=== PATIENT | male | born 1990 | race Caucasian/White ===

== ENCOUNTER 2018-09-06 16:01 | Emergency (ER) | payer OTHER ==
--- OUTSIDE RECORDS SUMMARY | 2018-09-06 16:03 | XMS REPORT | Clinical Summary ---
:1990 Author Organization [employer] [facility] Address [address] [place] [address] Care Team Providers Name Role Phone Malena Stein DO Primary Care Provider Allergies No Known Allergies Current Medications Prescription Sig. Disp. Refills Start Date End Date Status budesonide (RINOCORT 1 spray into each 3 Bottle 3 03/05/2016 Active AQUA) 32 mcg/actuation nostril daily. nasal spray jzdarxu-tsgboewikdzjg-f Take 1 tablet by Active affeine (EXCEDRIN mouth every 6 MIGRAINE) 250-250-65 mg (six) hours as per tablet needed for headaches. topiramate (TOPAMAX) 50 Take 1 tablet (50 90 tablet 1 09/27/2016 Active MG tablet mg total) by mouth daily. Active Problems Problem Noted Date Allergic rhinitis due to pollen 02/24/2016 Family History Medical History Relation Name Comments No Known Problems Brother No Known Problems Brother No Known Problems Father Cancer Maternal Grandfather unknown type Diabetes Maternal Grandmother No Known Problems Mother No Known Problems Paternal Grandfather No Known Problems Paternal Grandmother Relation Name Status Comments Brother Alive Brother Alive Father Alive Maternal Grandfather Alive Maternal Grandmother Alive Mother Alive Paternal Grandfather Alive Paternal Grandmother Alive Social History Tobacco Use Types Packs/Day Years Used Date Never Smoker Smokeless Tobacco: Current User Chew Tobacco Cessation: Ready to Quit: No Comments: chewing tobacco since [age] yoa Alcohol Use Drinks/Week oz/Week Comments Yes moderate - 1x/day (crown/sprite) Sex Assigned at Date Recorded Not on file Last Filed Vital Signs Not on file Plan of Treatment Health Maintenance Due Date Last Done Comments INFLUENZA VACCINE 06/19/2018 Results Not on fileafter 09/05/2017 Insurance Payer Benefit Plan / Group Subscriber ID Type Phone [facility]
[2018-09-06] MEDS ORDERED: KETOROLAC 30 MG/ML INJ ONE (16:45)
[2018-09-06 17:11] LABS: Urine Blood 1+ (NEG); Urine Glucose NEGATIVE (NEG); Urine Protein NEGATIVE (NEG); Urine Specific Gravity 1.005 (1.005-1.030)
[2018-09-06 17:22] LABS: Urine Bacteria NONE SEEN /HPF (NONE SEEN); Urine Culture Reflex Order NOT NEEDED; Urine RBC <5 /HPF (NONE SEEN)
--- NOTE | 2018-09-06 17:25 | RAD REPORT ---
EXAM DESCRIPTION: CT - Stone Protocol - 09/06/2018 4:51 pm CLINICAL HISTORY: Back pain, flank pain COMPARISON: CT imaging July 2017 TECHNIQUE: Axial 5 mm thick images were obtained without oral or IV contrast. The [id number] span s the entirety of the system including uppermost abdomen and lung bases. All CT scans are performed using dose optimization technique as appropriate and may include automated exposure control or mA/KV adjustment according to patient size. FINDINGS: No hydronephrosis is present and no obstructing ureteral calculi. No suspicious renal mass es. Isodense masses and pyelonephritis are not excluded on a stone protocol CT scan. A 2 millimeter c alcification is present lower pole left kidney No urinary bladder calculus. No thickening or mass. Prostate gland and seminal vesicles within normal limits. Imaged portions of the liver, spleen and pancreas show no suspicious findings on non-contrast imaging . No gallbladder or biliary tree abnormality identified. No significant adrenal finding. No suspicious bowel findings. Appendectomy clips are present. No acute GI process seen. Small fat only umbilical hernia is present similar to comparison. No inguinal hernia is seen. No free air, free fluid or inflammatory stranding. No significant bony abnormality. IMPRESSION: No hydronephrosis, obstructing calculus or acute finding. A small lower pole left geronimo al calculus noted on the left. Isodense masses and pyelonephritis are not excluded on stone protocol technique. Elsewhere abdomen and pelvis shows no acute or significant finding.
--- NOTE | 2018-09-06 17:33 | EDPHYS ---
Physician Documentation [facility] Name: Pradip Porter Age: 28 yrs Sex: Male : 1990 Arrival Date: 09/06/2018 Time: 16:02 Bed 26 Private MD: ED Physician Suhas Faria HPI: 09/06 17:06 This 28 yrs old Male presents to ER via Wheelchair with complaints of Back snw Pain. 17:06 The patient presents with pain that is acute, with no known mechanism of injury. The snw symptoms are located in the low back. Onset: The symptoms/episode began/occurred suddenly. Location: groin. Associated signs and symptoms: Pertinent positives: none. The problem was sustained from unknown cause. Modifying factors: The patient symptoms are alleviated by nothing, the patient symptoms are aggravated by nothing. Severity of symptoms: At their worst the symptoms were moderate. The patient has not experienced similar symptoms in the past. The patient has not recently seen a physician. + family hx of renal calculi. Historical: - Allergies: 16:10 No Known Allergies; aa5 - Home Meds: 16:10 Omeprazole Oral [Active]; aa5 16:46 Propranolol Oral [Active]; Rhinocort Aqua 32 mcg/actuation Nasal spry [Active]; mg2 - PMHx: 16:10 GERD; Hypertension; aa5 - PSHx: 16:10 Appendectomy; nose; aa5 - Immunization history:: Adult Immunizations up to date. - Social history:: Smoking status: Patient/guardian denies using tobacco. - Ebola Screening: : No symptoms or risks identified at this time. ROS: 17:00 Constitutional: Negative for fever, chills, and weight loss, Eyes: Negative for injury, snw pain, redness, and discharge, ENT: Negative for injury, pain, and discharge, Neck: Negative for injury, pain, and swelling, Cardiovascular: Negative for chest pain, palpitations, and edema, Respiratory: Negative for shortness of breath, cough, wheezing, and pleuritic chest pain, Abdomen/GI: Negative for abdominal pain, nausea, vomiting, diarrhea, and constipation, MS/Extremity: Negative for injury and deformity, Skin: Negative for injury, rash, and discoloration, Neuro: Negative for headache, weakness, numbness, tingling, and seizure. 17:00 Back: Positive for pain at rest, pain with movement, radiated pain, of the low back area with radiation to the groin, legs feel heavy. Exam: 16:53 Constitutional: This is a well developed, well nourished patient who is awake, alert, snw and in no acute distress. Head/Face: Normocephalic, atraumatic. Eyes: Pupils equal round and reactive to light, extra-ocular motions intact. Lids and lashes normal. Conjunctiva and sclera are non-icteric and not injected. Cornea within normal limits. Periorbital areas with no swelling, redness, or edema. ENT: Nares patent. No nasal discharge, no septal abnormalities noted. Tympanic membranes are normal and external auditory canals are clear. Oropharynx with no redness, swelling, or masses, exudates, or evidence of obstruction, uvula midline. Mucous membranes moist. Neck: Trachea midline, no thyromegaly or masses palpated, and no cervical lymphadenopathy. Supple, full range of motion without nuchal rigidity, or vertebral point tenderness. No Meningismus. Chest/axilla: Normal chest wall appearance and motion. Nontender with no deformity. No lesions are appreciated. Cardiovascular: Regular rate and rhythm with a normal S1 and S2. No gallops, murmurs, or rubs. Normal PMI, no JVD. No pulse deficits. Respiratory: Lungs have equal breath sounds bilaterally, clear to auscultation and percussion. No rales, rhonchi or wheezes noted. No increased work of breathing, no retractions or nasal flaring. Abdomen/GI: Soft, non-tender, with normal bowel sounds. No distension or tympany. No guarding or rebound. No evidence of tenderness throughout. Skin: Warm, dry with normal turgor. Normal color with no rashes, no lesions, and no evidence of cellulitis. MS/ Extremity: Pulses equal, no cyanosis. Neurovascular intact. Full, normal range of motion. Neuro: Awake and alert, GCS 15, oriented to person, place, time, and situation. Cranial nerves II-XII grossly intact. Motor strength 5/5 in all extremities. Sensory grossly intact. Cerebellar exam normal. Normal gait. Psych: Awake, alert, with orientation to person, place and time. Behavior, mood, and affect are within normal limits. 16:53 Back: pain, that is mild, that is moderate, ROM is painful. Vital Signs: 16:10 BP 112 / 68; Pulse 63; Resp 16 S; Temp 98.1(TE); Pulse Ox 97% on R/A; Weight 84.37 kg aa5 (R); Height 5 ft. 9 in. (175.26 cm) (R); Pain 8/10; 16:10 Body Mass Index 27.47 (84.37 kg, 175.26 cm) aa5 MDM: 16:38 Patient medically screened. snw 17:32 Data reviewed: vital signs, nurses notes. Data interpreted: Pulse oximetry: on room air snw is 97 %. Interpretation: normal. Counseling: I had a detailed discussion with the patient and/or guardian regarding: the historical points, exam findings, and any diagnostic results supporting the discharge/admit diagnosis, the need for outpatient follow up, for definitive care, to return to the emergency department if symptoms worsen or persist or if there are any questions or concerns that arise at home. Special discussion: Based on the history and exam findings, there is no indication for further emergent testing or inpatient evaluation. I discussed with the patient/guardian the need to see the primary care provider for further evaluation of the symptoms. 09/06 16:12 Order name: Urine Microscopic Only; Complete Time: 17:25 snw 09/06 17:04 Order name: Urine Dipstick--Ancillary (enter results); Complete Time: 17:22 eb 09/06 16:12 Order name: Urine Dipstick-Ancillary (obtain specimen); Complete Time: 17:13 snw 09/06 16:30 Order name: CT Stone Protocol; Complete Time: 17:30 snw Administered Medications: 16:47 Drug: TORadol 60 mg Route: IM; Site: right gluteus; mg2 17:41 Follow up: Response: No adverse reaction; Marked relief of symptoms mg2 18:23 Drug: Valium 2 mg Route: PO; mg2 18:23 Follow up: Response: No adverse reaction; Medication administered at discharge. mg2 Disposition: 09/07 06:23 Co-signature as Attending Physician, Suhas Faria MD I agree with the assessment and kdr plan of care. Disposition: 09/06/18 17:32 Discharged to Home. Impression: Low back pain. - Condition is Stable. - Discharge Instructions: Back Pain, Adult, Musculoskeletal Pain, Back Exercises, [id number], Cryotherapy, Heat Therapy. - Prescriptions for Diclofenac Sodium 75 mg Oral Tablet Sustained Release - take 1 tablet by ORAL route 2 times per day; 30 tablet. orphenadrine citrate 100 mg Oral Tablet Sustained Release - take 1 tablet by ORAL route 2 times per day As needed; 20 tablet. - Work release form, Medication Reconciliation Form, Thank You Letter, Antibiotic Education, Prescription Opioid Use form. - Follow up: Private Physician; When: 2 - 3 days; Reason: Recheck today's complaints, Continuance of care, Re-evaluation by your physician. Follow up: Emergency Department; When: As needed; Reason: Worsening of condition. Signatures: Dispatcher [employer] EDMS Suhas Faria MD MD [facility] Jelena Ly, LOTUS NOTES ADMINISTRATOR-C LOTUS NOTES ADMINISTRATOR-Csnw Kayla Massey, RN RN aa5 Miguelangel Baumann RN RN mg2 Corrections: (The following items were deleted from the chart) 09/06 18:23 17:32 09/06/2018 17:32 Discharged to Home. Impression: Low back pain. Condition is mg2 Stable. Forms are Medication Reconciliation Form, Thank You Letter, Antibiotic Education, Prescription Opioid Use. Follow up: Private Physician; When: 2 - 3 days; Reason: Recheck today's complaints, Continuance of care, Re-evaluation by your physician. Follow up: Emergency Department; When: As needed; Reason: Worsening of condition. snw
--- NOTE | 2018-09-06 17:33 | ER ---
Nurse's Notes [facility] Name: Pradip Porter Age: 28 yrs Sex: Male : 1990 Arrival Date: 09/06/2018 Time: 16:02 Bed 26 Private MD: Diagnosis: Low back pain Presentation: 09/06 16:08 Presenting complaint: Patient states: low back pain radiating to groin area since aa5 yesterday. Pt denies known injury, denies urinary symptoms. Transition of care: patient was not received from another setting of care. Onset of symptoms was August 2018. Risk Assessment: Do you want to hurt yourself or someone else? Patient reports no desire to harm self or others. Initial Sepsis Screen: Does the patient meet any 2 criteria? No. Patient's initial sepsis screen is negative. Does the patient have a suspected source of infection? No. Patient's initial sepsis screen is negative. Care prior to arrival: None. 16:08 Method Of Arrival: Wheelchair aa5 16:08 Acuity: JENN 3 aa5 Historical: - Allergies: 16:10 No Known Allergies; aa5 - Home Meds: 16:10 Omeprazole Oral [Active]; aa5 16:46 Propranolol Oral [Active]; Rhinocort Aqua 32 mcg/actuation Nasal spry [Active]; mg2 - PMHx: 16:10 GERD; Hypertension; aa5 - PSHx: 16:10 Appendectomy; nose; aa5 - Immunization history:: Adult Immunizations up to date. - Social history:: Smoking status: Patient/guardian denies using tobacco. - Ebola Screening: : No symptoms or risks identified at this time. Screenin:36 Abuse screen: Denies threats or abuse. Denies injuries from another. Nutritional mg2 screening: No deficits noted. Tuberculosis screening: No symptoms or risk factors identified. Fall Risk Gait- Weak (10 pts.). Assessment: 16:37 General: Appears uncomfortable, Behavior is calm, cooperative. Pain: Complains of pain mg2 in back Pain does not radiate. Pain currently is 6 out of 10 on a pain scale. Aggravated by increased activity, repositioning, weight bearing. Neuro: Level of Consciousness is awake, alert, obeys commands, Oriented to person, place, time, situation. Cardiovascular: Capillary refill < 3 seconds Patient's skin is warm and dry. Respiratory: Airway is patent Respiratory effort is even, unlabored, Respiratory pattern is regular, symmetrical. GI: No signs and/or symptoms were reported involving the gastrointestinal system. : No signs and/or symptoms were reported regarding the genitourinary system. EENT: No signs and/or symptoms were reported regarding the EENT system. Derm: Skin is intact, is healthy with good turgor, Skin is pink, warm \T\ dry. normal. Musculoskeletal: Circulation, motion, and sensation intact. Capillary refill < 3 seconds, Reports pain in back since 2 days. 16:52 Reassessment: patient in ct scan now. mg2 17:49 Reassessment: Patient appears in no apparent distress at this time. Patient and/or mg2 family updated on plan of care and expected duration. Pain level reassessed. Patient is alert, oriented x 3, equal unlabored respirations, skin warm/dry/pink. patient is for discharge. Just waiting for the to come and pick him up and give him valium before discharge,. Vital Signs: 16:10 BP 112 / 68; Pulse 63; Resp 16 S; Temp 98.1(TE); Pulse Ox 97% on R/A; Weight 84.37 kg aa5 (R); Height 5 ft. 9 in. (175.26 cm) (R); Pain 8/10; 16:10 Body Mass Index 27.47 (84.37 kg, 175.26 cm) aa5 ED Course: 16:02 Patient arrived in ED. tw3 16:09 Triage completed. aa5 16:09 Arm band placed on. aa5 16:12 Jelena Ly [facility]-C [facility]. snw 16:12 Suhas Faria MD is Attending Physician. snw 16:16 Miguelangel Baumann, NATALEE is Primary Nurse. mg2 16:[address] nj 16:36 No provider procedures requiring assistance completed. Patient did not have IV access mg2 during this emergency room visit. 16:45 Patient has correct armband on for positive identification. Call light in reach. Pulse mg2 ox on. NIBP on. 16:52 CT Stone Protocol In Process Unspecified. EDMS Administered Medications: 16:47 Drug: TORadol 60 mg Route: IM; Site: right gluteus; mg2 17:41 Follow up: Response: No adverse reaction; Marked relief of symptoms mg2 18:23 Drug: Valium 2 mg Route: PO; mg2 18:23 Follow up: Response: No adverse reaction; Medication administered at discharge. mg2 Outcome: 17:32 Discharge ordered by . steffanie 18:23 Discharged to home via wheelchair, with family. mg2 18:23 Condition: good 18:23 Discharge instructions given to patient, family, Instructed on discharge instructions, follow up and referral plans. medication usage, Demonstrated understanding of instructions, follow-up care, medications, Prescriptions given X 2. 18:23 Patient left the ED. mg2 Signatures: Dispatcher [employer] EDMS Jelena Ly, COMPOSITION INSTRUCTOR-C COMPOSITION INSTRUCTOR-Csnw Kayla Massey, RN RN aa5 Ranjith Garrido Tia tw3 Miguelangel Baumann RN RN mg2
[2018-09-06] MEDS ORDERED: DIAZEPAM 2 MG TABLET ONE (18:27)
== END 2018-09-06 18:23 | disposition home or self-care (01) ==
LOC: ER 16:01
DX: M54.5 Low back pain (principal); I10 Essential (primary) hypertension; K21.9 Gastro-esophageal reflux disease without esophagitis
CPT/HCPCS: 74176; 76377; 81003; 81015; 96372; 99284

== ENCOUNTER 2021-03-29 08:30 | Emergency (ER) | payer OTHER ==
--- OUTSIDE RECORDS SUMMARY | 2021-03-29 08:33 | XMS REPORT | Continuity of Care Document ---
:1990 Author Organization [facility] t Address [address] [place] [address] Care Team Providers Name Role Phone Sarita GAYLE Primary Care Physician Doctor Unassigned, Name Attending Clinician Unavailable Kiana SPENCER, Gene Attending Clinician Problems Condition Condition Condition Status Onset Resolution Last Treating Co mments Source Name Details Category Date Date Treatment Clinician Date Allergic Allergic Disease Active Hous[place] on rhinitis rhinitis 02-23 Method i due to due to 00:00: st pollen pollen 00 Allergies, Adverse Reactions, Alerts This patient has no known allergies or adverse reactions. Family History Family Member Diagnosis Comments Start Date Stop Date Source Paternal grandmother No Known Problems Rahman [facility] Natural brother No Known Problems Eldon trinh [facility] Natural father No Known Problems Marielle castañeda [facility] Maternal grandfather Cancer [place] [facility] Maternal grandmother Diabetes [place] [facility] Natural mother No Known Problems Marielle garry [facility] Paternal grandfather No Known Problems [place] [facility] Social History Social Habit Start Date Stop Date Quantity Comments Source History of Chews Tobacco Josiah guajardo tobacco use Tobacco use and 2016-09-27 2016-09-27 Current user [facility]man [facility] exposure 00:00:00 00:00:00 Alcohol intake 2016-09-27 2016-09-27 Current drinker [place] [facility] 00:00:00 00:00:00 of alcohol (finding) Tobacco Comment 2016-02-24 2016-02-24 chewing tobacco [place] [facility] 00:00:00 00:00:00 since 14 yoa Alcohol Comment 2016-02-24 2016-02-24 moderate - Josiah Patel [facility]ist 00:00:00 00:00:00 1x/day (crown/sprite) Sex Ass[birth year] At [birth year] Josiah Patel [facility]ist 00:00:00 00:00:00 Smoking Status Start Date Stop Date Source Never smoker Josiah peter Medications Ordered Filled Start Stop Current Ordering Indication Dosage Frequency Signature Comments Components Source Medication Medication Date Date Medication? Clinician (SIG) Name Name topiramate 2015-11 Yes 50mg QD Take 1 [place] (TOPAMAX) -09 tablet (50 Meth azeb 50 MG 00:00: mg total) st tablet 00 by mouth daily. aspirin-serge Yes 1{tbl} Q6H Take 1 [place] taminophen- 9-15 tablet by Met [place] caffeine 14:00: mouth st (EXCEDRIN 43 every 6 MIGRAINE) (six) 250-250-65 hours as mg per needed for tablet headaches. budesonide Yes 1{spray QD 1 spray [place] (RINOCORT 4-17 } into each Meth[place] di AQUA) 32 00:00: nostril st mcg/actuati 00 daily. on nasal spray Procedures This patient has no known procedures. Plan of Care Planned Activity Planned Date Details Comments Source Future Scheduled 2021-06-19 INFLUENZA VACCINE Remi denis [facility] Test 00:00:00 [code = INFLUENZA VACCINE] Future Scheduled 2005 COVID-19 VACCINE (1) Marielle caryadeel [facility] Test 00:00:00 [code = COVID-19 VACCINE (1)] Encounters Start End Encounter Admission Attending Care Care Encounter Source Date/Time Date/Time Type Type Clinicians Facility Department ID 2021-01-13 2021-01-13 Orders Doctor DONG [id number] 00:00:00 00:00:00 Only UnassignedGAYATRI [id number] [place] [facility] [id number] [id number] 2019-12-28 2019-12-28 Orders Doctor IKER [id number] 00:00:00 00:00:00 Only UnassignedGAYATRI [id number] [place] [facility] [id number] 2019-12-09 2019-12-09 Office Kiana PREMAELLA [id number] 13:05:51 15:07:23 Visit Thomas William [id number] [place] [id number] Profedwin [id number] [facility] 2019-12-09 2019-12-09 Orders Doctor DONG [id number] 00:00:00 00:00:00 Only Unassigned, GAYATRI [id number] [place] [facility] [id number] [id number] 2019-09-30 2019-09-30 Outpatient MHSE [id number] MH 12:59:00 12:59:[address] [facility] 2019-09-02 2019-09-02 Outpatient MHSE [id number] [facility] 13[facility]02[facility] Results This patient has no known results.
--- NOTE | 2021-03-29 09:35 | RAD REPORT ---
EXAM DESCRIPTION: CT - Head C Spine Mpr Wo Con - 03/29/2021 9:10 am CLINICAL HISTORY: Right arm weakness COMPARISON: 1999 TECHNIQUE: Computed axial tomography of the head and cervical spine was obtained. Sagittal and coronal reconstruction was performed. All CT scans are performed using dose optimization technique as appropriate and may include automated exposure control or mA/KV adjustment according to patient size. FINDINGS: An intracranial bleed is not seen. The ventricles are normal in caliber. An extra-axial fl uid collection is not noted.Fluid within the visualized sinuses and mastoids is not seen A cervical fracture is not visualized. No dislocation is noted. No high-grade foraminal/central spina l stenosis seen. IMPRESSION: No acute intracranial abnormality is seen. A cervical fracture is not visualized. No high-grade foraminal/ central spinal stenosis is seen. If the patient continues to have symptoms to suggest intracranial /spinal cord/spinal canal pathology then MRI would be recommended
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
[2021-03-29] MEDS ORDERED: dexAMETHasone 10 MG/ML VIAL ONE (10:04)
[2021-03-29] MEDS ORDERED: KETOROLAC 30 MG/ML INJ ONE (10:04)
[2021-03-29 10:34] VITALS: TEMP 98; O2SAT 99
[2021-03-29 10:36] VITALS: BP 122/79
== END 2021-03-29 10:29 | disposition home or self-care (01) ==
LOC: ER 08:30
DX: M62.838 Other muscle spasm (principal); M43.6 Torticollis; I10 Essential (primary) hypertension; Z87.820 Personal history of traumatic brain injury
CPT/HCPCS: 70450; 72125; J1100; 96372; 99283